=== PATIENT | male | born 1940 | race Asian ===

== ENCOUNTER 2016-11-12 13:05 | Emergency (ER) | payer MEDICARE ==
--- NOTE | 2016-11-12 14:36 | XRay Report ---
Single view chest: History: Cough and fever. Findings: Normal cardiomediastinal silhouette. Trachea midline. No consolidation, pneumothorax or pleural effusion. Impression: No acute cardiopulmonary findings.
[2016-11-12 14:55] LABS: Hematocrit 51.4 % (35.5-45.6); Hemoglobin 17.3 gm/dl (11.8-15.2); Mean Corpuscular HGB Conc 34 % (32-34); Mean Corpuscular Hemoglobin 30 pg (28-32); Mean Corpuscular Volume 88 fl (84-94); Platelet Count 148 K/mm3 (140-440); Red Blood Count 5.85 M/mm3 (3.65-5.03); Red Cell Distribution Width 12.9 % (13.2-15.2); White Blood Count 4.5 K/mm3 (4.5-11.0)
[2016-11-12 15:05] LABS: BUN/Creatinine Ratio 20.55; Calcium 8.8 mg/dL (8.4-10.2); Chloride 96.5 mmol/L (98-107); Potassium 4.5 mmol/L (3.6-5.0)
[2016-11-12] MEDS ORDERED: TYLENOL PO ONE (15:20)
[2016-11-12] MEDS ORDERED: BENTYL PO ONE ×2 (15:20→16:00)
[2016-11-12] MEDS ORDERED: NACL 0.9% 1000 ML 1,000 ML IV ONE (15:20)
--- NOTE | 2016-11-12 15:21 | Emergency Department Report ---
ED General Adult HPI - General Chief complaint: Fever Stated complaint: FLU LIKE SYMPTOMS Time Seen by Provider: 11/12/16 15:08 Source: family, EMS (ems notes not available at time of chart dictation), RN notes reviewed Mode of arrival: Stretcher Limitations: No Limitations - History of Present Illness Initial comments: This is a 76-year-old male. He is previously unknown to me. Has a past medical history of heart disease, hypertension. His primary care doctor's Dr. Maxime Fitzgerald. His billing representative is Dr. Ibrahima Garcia, in [place]. Patient presents to the ER with 4 days of cough, body aches, profuse diarrhea, abdominal wall and chest wall discomfort. He denies vomiting to me. He reports profuse diarrhea. States that whenever he drinks, "goes right through me" he also complains of mild diffuse abdominal cramping, and dry cough. Symptoms have been present for 4 days. Doesn't think he received his flu shot. Denies irritative and obstructive urinary symptoms. Also describes diffuse body aches. Indicates to myself and nursing staff "I think I had the flu." -: Gradual Location: abdomen, left, right, upper extremity, lower extremity Severity scale (0 -10): 6 Consistency: intermittent Improves with: rest Worsens with: movement Associated Symptoms: cough, weakness - Related Data Previous Rx's Medication Instructions Recorded Last Taken Type Dicyclomine [Bentyl] 10 mg PO QID PRN #20 capsule 11/12/16 Unknown Rx Ondansetron [Zofran Odt] 4 mg PO QID PRN #20 tab.rapdis 11/12/16 Unknown Rx Allergies Allergy/AdvReac Type Severity Reaction Status Date / Time No Known Allergies Allergy Unverified 11/12/16 13:47 ED Review of Systems ROS: Stated complaint: FLU LIKE SYMPTOMS Other details as noted in HPI Constitutional: fever, malaise. denies: weakness ENT: denies: epistaxis Respiratory: cough Gastrointestinal: abdominal pain, diarrhea Genitourinary: denies: dysuria Musculoskeletal: arthralgia, myalgia Skin: lesions Neurological: weakness ED Past Medical Hx - Past Medical History Hx Hypertension: Yes Hx Heart Attack/AMI: Yes - Surgical History Additional Surgical History: cabbage - Social History Smoking Status: Never Smoker Substance Use Type: None - Medications Home Medications: Home Medications Medication Instructions Recorded Confirmed Last Taken Type Dicyclomine [Bentyl] 10 mg PO QID PRN #20 capsule 11/12/16 Unknown Rx Ondansetron [Zofran Odt] 4 mg PO QID PRN #20 tab.rapdis 11/12/16 Unknown Rx ED Physical Exam - General Limitations: No Limitations General appearance: alert, in no apparent distress - Head Head exam: Present: atraumatic, normocephalic - Eye Eye exam: Present: normal appearance, EOMI. Absent: nystagmus - ENT ENT exam: Present: normal exam, normal orophraynx, mucous membranes dry - Neck Neck exam: Present: normal inspection, full ROM. Absent: tenderness - Respiratory Respiratory exam: Present: normal lung sounds bilaterally. Absent: respiratory distress, wheezes, rales, rhonchi, stridor, chest wall tenderness - Cardiovascular Cardiovascular Exam: Present: regular rate, normal rhythm, normal heart sounds. Absent: bradycardia, tachycardia, irregular rhythm, systolic murmur, diastolic murmur, rubs, gallop - GI/Abdominal GI/Abdominal exam: Present: soft, tenderness, normal bowel sounds, other (mild diffuse abdominal tenderness). Absent: distended, guarding, rebound, rigid, pulsatile mass - Rectal Rectal exam: Present: deferred - Extremities Exam Extremities exam: Present: normal inspection, full ROM, normal capillary refill. Absent: tenderness, pedal edema, joint swelling, calf tenderness - Back Exam Back exam: Present: normal inspection, full ROM. Absent: tenderness, CVA tenderness (R), CVA tenderness (L), muscle spasm, paraspinal tenderness, vertebral tenderness - Neurological Exam Neurological exam: Present: alert, oriented X3, normal gait, other (Extraocular movements intact. Tongue midline. No facial droop. Facial sensation intact to light touch in the V1, V2, V3 distribution bilaterally. 5 and 5 strength in 4 extremities.. Sensation is intact to light touch in 4 extremities.). Absent : motor sensory deficit - Psychiatric Psychiatric exam: Present: normal affect, normal mood - Skin Skin exam: Present: warm, dry, intact, normal color. Absent: rash ED Course Vital Signs 11/12/16 11/12/16 11/12/16 13:32 13:39 14:00 Temperature 99.1 F Pulse Rate 88 85 89 Respiratory 20 22 19 Rate Blood Pressure 145/86 136/84 O2 Sat by Pulse 95 96 95 Oximetry 11/12/16 11/12/16 11/12/16 14:30 15:00 15:13 Temperature Pulse Rate 90 89 Respiratory 16 11 L 18 Rate Blood Pressure 136/84 146/82 O2 Sat by Pulse 95 96 99 Oximetry 11/12/16 11/12/16 11/12/16 15:30 16:00 16:10 Temperature Pulse Rate 90 90 Respiratory 22 16 18 Rate Blood Pressure 146/82 146/82 O2 Sat by Pulse 93 98 Oximetry 11/12/16 11/12/16 16:30 17:00 Temperature Pulse Rate 88 77 Respiratory 19 20 Rate Blood Pressure 146/82 133/73 O2 Sat by Pulse 97 99 Oximetry - Reevaluation(s) Reevaluation #1: 11/12/16 17:43 differential diagnosis: Viral syndrome, influenza-like illness, pneumonia, urinary tract infection, colitis, diverticulitis, appendicitis Assessment and plan: 76-year-old male with influenza like illness for 4 days. Symptoms present for greater than 72 hours, therefore he is not a Tamiflu candidate. No active vomiting, abdomen was initially minimally tender, he was given IV fluid and symptomatically therapy. Vital signs improved, he was able to tolerate liquid feeds. noncontrast CAT scan and repeat pelvis demonstrated no acute disease. X-ray of the chest was negative. Noted to have mild renal insufficiency, he can follow up with a primary care doctor for this. He will be discharged at this time symptomatically therapy, and instructions to follow up with outpatient primary care doctor. Return precautions are extensively reviewed. ED Medical Decision Making - Lab Data Result diagrams: 11/12/16 14:32 11/12/16 14:32 Vital Signs 11/12/16 11/12/16 11/12/16 13:32 13:39 14:00 Temperature 99.1 F Pulse Rate 88 85 89 Respiratory 20 22 19 Rate Blood Pressure 145/86 136/84 O2 Sat by Pulse 95 96 95 Oximetry 11/12/16 11/12/16 11/12/16 14:30 15:00 15:13 Temperature Pulse Rate 90 89 Respiratory 16 11 L 18 Rate Blood Pressure 136/84 146/82 O2 Sat by Pulse 95 96 99 Oximetry 11/12/16 11/12/16 11/12/16 15:30 16:00 16:10 Temperature Pulse Rate 90 90 Respiratory 22 16 18 Rate Blood Pressure 146/82 146/82 O2 Sat by Pulse 93 98 Oximetry 11/12/16 11/12/16 16:30 17:00 Temperature Pulse Rate 88 77 Respiratory 19 20 Rate Blood Pressure 146/82 133/73 O2 Sat by Pulse 97 99 Oximetry - EKG Data When compared to previous EKG there are: previous EKG unavailable 11/12/16 17:43 normal sinus, 85 bpm, QTC 445 ms, right bundle branch block, abnormal EKG, not morphologically consistent with STEMI, there is no prior EKG available for comparison. - Radiology Data Radiology results: report reviewed, image reviewed Noncontrast CT scan of the abdomen and pelvis negative. X-ray negative Critical care attestation.: If time is entered above; I have spent that time in minutes in the direct care of this critically ill patient, excluding procedure time. ED Disposition Clinical Impression: Influenza Disposition: DISCHARGED TO HOME OR SELFCARE Is pt being admited?: No Does the pt Need Aspirin: No Condition: Stable Instructions: Influenza (ED) Additional Instructions: Laboratory studies demonstrated mild renal insufficiency. Continue current outpatient medications, but follow up with her primary care doctor within the next 3-5 days for this. Laboratory studies also indicated the presence of influenza A. This has been present for greater than 3 days, therefore youre not a candidate for the influenza medication. Chest x-ray was within normal limits. CT scan of abdomen and pelvis was within normal limits. Take the pain medication, nausea medication as directed. Return to the ER right away with new pain, worsening pain, migration of pain, intractable nausea or vomiting, inability to take liquid feeds. Take acetaminophen, 650 mg every 4-6 hours as needed for fever/pain. Referrals: PRIMARY SARAY, [Primary Care Provider] - 3-5 Days LULÚ FITZGERALD MD [Referring] - 3-5 Days
[2016-11-12 15:32] LABS: Bilirubin,Urine NEG (Negative); Blood,Urine MOD (Negative); Granular Casts,Urine 8 /LPF; Ketones,Urine 20 mg/dL (Negative); Leukocyte Esterase,Urine NEG (Negative); Mucus,Urine 2+ /HPF; Nitrite,Urine NEG (Negative); Protein,Urine >500 mg/dL (Negative); Urobilinogen,Urine < 2.0 mg/dL (<2.0)
[2016-11-12 16:01] LABS: Basophils % (Manual) 0 % (0.0-1.8); Blastocytes % (Manual) 0 %; Eosinophils % (Manual) 0 % (0.0-4.3)
--- NOTE | 2016-11-12 16:01 | Cat Scan Report ---
CT scan of abdomen and pelvis without IV contrast: History: Abdominal pain, diarrhea. Findings: Normal lung bases. No pleural pericardial effusion. Normal liver spleen pancreas and gallbladder. Normal adrenals. 1.7 cm cyst left kidney. Normal bladder. No free intraperitoneal fluid or air. No evidence of adenopathy. Normal atherosclerotic aorta. Appendix measures 7 mm in diameter without periappendiceal inflammation. No diverticulitis. No bowel distention. Small umbilical hernia containing fat. Right inguinal hernia containing fat measuring 2.4 cm in diameter. Impression: Umbilical hernia and small right inguinal hernia. Small hiatal hernia.
[2016-11-12 16:02] LABS: Diff Status Complete; Platelet Estimate Consistent w Auto; RBC Morphology Normal
[2016-11-12 16:27] LABS: Albumin/Globulin Ratio 1.1 %; Bilirubin,Direct 0.2 mg/dL (0-0.2); Bilirubin,Indirect 0.8 mg/dL; Total Protein 7.6 g/dL (6.3-8.2)
[2016-11-12 17:31] VITALS: BP 133/73
== END 2016-11-12 19:11 | disposition home or self-care (01) ==
LOC: ED 13:05
DX: J11.1 Influenza due to unidentified influenza virus with other respiratory manifestations (principal); I25.2 Old myocardial infarction; I10 Essential (primary) hypertension
CPT/HCPCS: 36415; 71010; 74176; 80048; 80074; 81001; 82140; 82550; 83690; 85007; 85025; 87400; 93005; 93010; 96360; 96361; 99285; J7030